=== PATIENT | male | born 1985 | race Caucasian/White ===

== ENCOUNTER 2018-05-06 19:46 | Inpatient (IN) | payer SELFPAY ==
[~2018-05-06] VITALS: Ht 172.7 cm; Wt 59.0 kg
[2018-05-07] MEDS ORDERED: SODIUM CHLORIDE 0.9% 1,000 ML IV ONE (01:05)
[2018-05-07] MEDS ORDERED: TETANUS, DIPHTHERIA, PERTUSSIS VAC/PF 0.5ML (>7YR OLD) IM ONE (01:15)
[2018-05-07] MEDS ORDERED: KETOROLAC 30MG/ML VIAL IV ONE (01:15)
[2018-05-07] MEDS ORDERED: METRONIDAZOLE 500 MG PREMIX 100 ML IV ONE (01:30)
[2018-05-07] MEDS ORDERED: SODIUM CHLORIDE 0.9% 1000ML BAG (SEPSIS BOLUS) IV ONE (01:30)
[2018-05-07] MEDS ORDERED: CLINDAMYCIN 600 MG in DEXTROSE 5% WATER 50 ML IV ONE (01:30)
[2018-05-07] MEDS ORDERED: VANCOMYCIN 1 G PREMIX 200 ML IV ONE (01:30)
[2018-05-07 01:38] LABS: BASOPHILS % 0.4 % (0.0-2.0); EOSINOPHILS % 0.7 % (0.0-5.0); HEMATOCRIT. 33.8 % (42.0-52.0); HEMOGLOBIN. 11.3 g/dL (14.0-18.0); LYMPHOCYTES % 9.2 % (20.0-50.0); MEAN CORPUSCULAR HEMOGLOBIN 29.9 pg (28.0-32.0); MEAN CORPUSCULAR VOLUME 89.1 fL (80.0-94.0); MEAN PLATELET VOLUME 6.9 fl (7.4-10.4); MONOCYTES % 9.1 % (2.0-8.0); NEUTROPHILS % 80.6 % (40.0-76.0); PLATELET 460 x1000/uL (130-400); RED BLOOD CELL COUNT 3.79 mill/uL (4.7-6.1); RED CELL DISTRIBUTION WIDTH 12.7 % (11.6-14.6)
[2018-05-07 01:44] LABS: CHLORIDE 97 mEq/L (98-107)
[2018-05-07 01:45] LABS: PROTHROMBIN TIME 10.3 sec (9.1-11.1)
[2018-05-07 01:48] LABS: ETHANOL BLOOD < 10 mg/dL
[2018-05-07] MEDS ORDERED: SODIUM CHLORIDE 0.9% 1,000 ML IV SCH (04:17)
[2018-05-07] MEDS ORDERED: IBUPROFEN 600MG TABLET PO PRN (04:30)
[2018-05-07 04:50] LABS: *AMPHETAMINES SCREEN URINE PRESUMTIVE POSITIVE (NEGATIVE); *BARBITURATES SCREEN URINE NEGATIVE (NEGATIVE)
[2018-05-07 04:51] LABS: *BENZODIAZEPINES SCREEN URINE NEGATIVE (NEGATIVE); *COCAINE SCREEN URINE NEGATIVE (NEGATIVE); CANNABINOID URINE SCREEN PRESUMTIVE POSITIVE (NEGATIVE); METHADONE URINE SCREEN NEGATIVE (NEGATIVE); OPIATES URINE SCREEN NEGATIVE (NEGATIVE); PHENCYCLIDINE URINE SCREEN NEGATIVE (NEGATIVE)
[2018-05-07 04:58] LABS: CLARITY URINE CLOUDY (CLEAR); COLOR URINE YELLOW (YELLOW); KETONES URINE NEGATIVE (NEGATIVE); LEUKOCYTE ESTERASE URINE TRACE (NEGATIVE); NITRITE URINE POSITIVE (NEGATIVE); OCCULT BLOOD URINE TRACE (NEGATIVE); PROTEIN URINE 1+ (NEGATIVE); SPECIFIC GRAVITY URINE 1.019 (1.005-1.030)
[2018-05-07 18:06] VITALS: BP 103/58
[2018-05-07 20:00] VITALS: BP 91/58
[2018-05-07 20:12] VITALS: BP 103/58
[2018-05-08] VITALS: BP 101/67
[2018-05-08 04:00] VITALS: BP 109/70
[2018-05-08] MEDS ORDERED: DIPHENHYDRAMINE 50MG/ML VIAL IV PRN (07:15)
[2018-05-08] MEDS ORDERED: VANCOMYCIN 1 G PREMIX 200 ML IV SCH (07:15)
[2018-05-08] MEDS ORDERED: ACETAMINOPHEN 325MG TABLET PO PRN (07:15)
[2018-05-08] MEDS ORDERED: LORAZEPAM 2MG/ML CPJ IV PRN (07:15)
[2018-05-08] MEDS ORDERED: ENOXAPARIN 40MG/0.4ML SYR SUBCUT SCH (07:15)
[2018-05-08] MEDS ORDERED: LORAZEPAM 0.5MG TABLET PO PRN (07:30)
[2018-05-08 07:52] LABS: BG BASE EXCESS 7.3 mmol/L (-2.0-2.0); BG CARBOXYHEMOGLOBIN 0.4 % (0.5-1.5); BG DEOXYHEMOGLOBIN 2.5 % (0.0-5.0); BG FRACTION INSPIRED OXYGEN 21; BG HCO3 ACT 31.7 mmol/L (22.0-26.0); BG METHEMOGLOBIN 0.1 % (0.0-1.5); BG OXYGEN SATURATION 97.5 % (92.0-98.5); BG PCO2 44.4 mmHg (35.0-45.0); BG PH 7.472 (7.350-7.450); BG PO2 96.1 mmHg (75.0-100.0); BG SAMPLE SITE LEFT RADIAL; BG TOTAL HEMOGLOBIN 11.3 g/dL (12.0-18.0); BG VENT MODE ROOM AIR
[2018-05-08 08:00] VITALS: BP 116/72
[2018-05-08] MEDS: SODIUM CHLORIDE 0.9% 1,000 ML IV SCH ×2 (08:40→17:34)
[2018-05-08] MEDS: ENOXAPARIN 40MG/0.4ML SYR SUBCUT SCH (08:40)
[2018-05-08] MEDS ORDERED: VANCOMYCIN 1250MG in DEXTROSE 5% WATER 250ML IV NR (09:00)
[2018-05-08 10:59] LABS: BASOPHILS % 0.5 % (0.0-2.0); HEMATOCRIT. 34.8 % (42.0-52.0); HEMOGLOBIN. 11.5 g/dL (14.0-18.0); MEAN CORPUSCULAR HEMOGLOBIN 29.8 pg (28.0-32.0); MEAN CORPUSCULAR VOLUME 90.4 fL (80.0-94.0); MEAN PLATELET VOLUME 7.5 fl (7.4-10.4); NEUTROPHILS % 74.5 % (40.0-76.0); PLATELET 488 x1000/uL (130-400); RED BLOOD CELL COUNT 3.84 mill/uL (4.7-6.1); RED CELL DISTRIBUTION WIDTH 12.7 % (11.6-14.6)
[2018-05-08 11:24] LABS: CHLORIDE 103 mEq/L (98-107)
[2018-05-08 12:00] VITALS: BP 97/61
[2018-05-08] MEDS: CEFTRIAXONE 1 G PREMIX 50 ML IV SCH (15:54)
[2018-05-08 16:00] VITALS: BP 98/62
[2018-05-08] MEDS: VANCOMYCIN 1 G PREMIX 200 ML IV SCH (17:34)
[2018-05-08 23:46] VITALS: BP 100/65
[2018-05-09] MEDS: VANCOMYCIN 1 G PREMIX 200 ML IV SCH ×2 (01:22→08:39)
[2018-05-09 03:48] VITALS: BP 122/87
[2018-05-09 07:40] LABS: BASOPHILS % 0.8 % (0.0-2.0); EOSINOPHILS % 0.7 % (0.0-5.0); HEMATOCRIT. 34.9 % (42.0-52.0); HEMOGLOBIN. 11.7 g/dL (14.0-18.0); LYMPHOCYTES % 10.1 % (20.0-50.0); MEAN CORPUSCULAR HEMOGLOBIN 30.3 pg (28.0-32.0); MEAN CORPUSCULAR VOLUME 90.4 fL (80.0-94.0); MEAN PLATELET VOLUME 7.5 fl (7.4-10.4); MONOCYTES % 8.6 % (2.0-8.0); NEUTROPHILS % 79.8 % (40.0-76.0); PLATELET 597 x1000/uL (130-400); RED BLOOD CELL COUNT 3.86 mill/uL (4.7-6.1); RED CELL DISTRIBUTION WIDTH 12.2 % (11.6-14.6)
[2018-05-09 07:50] LABS: CHLORIDE 101 mEq/L (98-107)
[2018-05-09 08:00] VITALS: BP 110/62
[2018-05-09] MEDS: ENOXAPARIN 40MG/0.4ML SYR SUBCUT SCH (08:40)
[2018-05-09 12:00] VITALS: BP 102/62
[2018-05-09] MEDS: SODIUM CHLORIDE 0.9% 1,000 ML IV SCH (12:43)
[2018-05-09 16:00] VITALS: BP 110/70
[2018-05-09] MEDS: CEFTRIAXONE 1 G PREMIX 50 ML IV SCH (16:03)
[2018-05-09] MEDS: VANCOMYCIN 750 MG PREMIX 150 ML IV SCH (17:45)
[2018-05-09] MEDS: HYDROCODONE/ACETAMINOPHEN 5/325MG TABLET PO PRN (18:48)
[2018-05-09 20:00] VITALS: BP 92/53
[2018-05-10] VITALS: BP 98/60
[2018-05-10] MEDS: VANCOMYCIN 750 MG PREMIX 150 ML IV SCH ×2 (00:59→09:22)
[2018-05-10 04:00] VITALS: BP 102/63
[2018-05-10] MEDS: HYDROCODONE/ACETAMINOPHEN 5/325MG TABLET PO PRN (04:04)
[2018-05-10 08:00] VITALS: BP 187/102
[2018-05-10] MEDS: ENOXAPARIN 40MG/0.4ML SYR SUBCUT SCH (08:40)
[2018-05-10 09:10] LABS: BASOPHILS % 0.7 % (0.0-2.0); HEMATOCRIT. 37.3 % (42.0-52.0); HEMOGLOBIN. 12.2 g/dL (14.0-18.0); LYMPHOCYTES % 16.5 % (20.0-50.0); MEAN CORPUSCULAR HEMOGLOBIN 29.6 pg (28.0-32.0); MEAN CORPUSCULAR VOLUME 90.4 fL (80.0-94.0); MEAN PLATELET VOLUME 7.2 fl (7.4-10.4); MONOCYTES % 7.8 % (2.0-8.0); PLATELET 647 x1000/uL (130-400); RED BLOOD CELL COUNT 4.12 mill/uL (4.7-6.1); RED CELL DISTRIBUTION WIDTH 12.4 % (11.6-14.6)
[2018-05-10] MEDS: SODIUM CHLORIDE 0.9% 1,000 ML IV SCH (09:22)
[2018-05-10 10:20] LABS: CHLORIDE 101 mEq/L (98-107)
[2018-05-10 12:00] VITALS: BP 108/57
[2018-05-10] MEDS: CEFTRIAXONE 1 G PREMIX 50 ML IV SCH (14:51)
[2018-05-10 16:00] VITALS: BP 107/59
[2018-05-10] MEDS: VANCOMYCIN 1 G PREMIX 200 ML IV SCH (18:08)
[2018-05-10 20:00] VITALS: BP 93/55
[2018-05-10] MEDS: NITROFURANTOIN 100MG M/M CAPSULE PO SCH (21:42)
[2018-05-11] VITALS: BP 92/59
[2018-05-11] MEDS: VANCOMYCIN 1 G PREMIX 200 ML IV SCH ×2 (00:44→08:17)
[2018-05-11 04:00] VITALS: BP 105/68
[2018-05-11] MEDS: SODIUM CHLORIDE 0.9% 1,000 ML IV SCH (04:46)
[2018-05-11] MEDS: NITROFURANTOIN 100MG M/M CAPSULE PO SCH (08:17)
[2018-05-11] MEDS: ENOXAPARIN 40MG/0.4ML SYR SUBCUT SCH (08:17)
[2018-05-11] MEDS ORDERED: SODIUM HYPOCHLORITE 0.125% 473ML SOLUTION TOP SCH (11:00)
[2018-05-11 12:31] VITALS: BP 122/73
== END 2018-05-11 15:43 | disposition home or self-care (01) | DRG 720 ==
LOC: ER 19:46 → 6EST 05-07 04:22 → EDBEDREQ 05-07 04:24 → EDBEDREQTM 05-07 04:24 → EDBEDREQSVC 05-07 10:26 → CANRESERV 05-07 10:27 → ENRESERV 05-07 10:27 → EDBEDREQSVC 05-07 10:37 → ENRESERV 05-07 16:33 → CANRESERV 05-07 16:38
PROVIDERS: ADMIT Internal Medicine Nephrology; ATTEND Internal Medicine Nephrology
DX: A41.9 Sepsis, unspecified organism (principal); E43 Unspecified severe protein-calorie malnutrition; E87.8 Other disorders of electrolyte and fluid balance, not elsewhere classified; G82.20 Paraplegia, unspecified; L03.116 Cellulitis of left lower limb; N39.0 Urinary tract infection, site not specified; L97.909 Non-pressure chronic ulcer of unspecified part of unspecified lower leg with unspecified severity; L02.419 Cutaneous abscess of limb, unspecified; E87.1 Hypo-osmolality and hyponatremia; D64.9 Anemia, unspecified; M60.9 Myositis, unspecified; F15.10 Other stimulant abuse, uncomplicated; F12.10 Cannabis abuse, uncomplicated; F17.200 Nicotine dependence, unspecified, uncomplicated; Z59.0 Homelessness; Z63.8 Other specified problems related to primary support group; Z99.3 Dependence on wheelchair; Z68.1 Body mass index [BMI] 19.9 or less, adult
CPT/HCPCS: 36415; 36600; 71045; 73590; 73700; 76881; 80048; 80202; 80305; 82375; 82805; 83605; 84145; 84484; 87070; 87077; 87186; 90715; 93005; 99285; G0482; J0696; J1650; J1885; J3370; J3490; J7030; J7060

== ENCOUNTER 2025-01-07 16:51 | Emergency (ER) | payer SELFPAY ==
[~2025-01-07] VITALS: Ht 170.2 cm; Wt 69.0 kg
[2025-01-07 16:55] VITALS: BP 111/68; PULSE 100; RESP 18; TEMP 36.8; O2SAT 100
== END 2025-01-07 19:40 | disposition left against medical advice (07) ==
LOC: ER 16:51
DX: T30.0 Burn of unspecified body region, unspecified degree (principal); Z53.21 Procedure and treatment not carried out due to patient leaving prior to being seen by health care provider; X58.XXXA Exposure to other specified factors, initial encounter; Y93.89 Activity, other specified; Y92.89 Other specified places as the place of occurrence of the external cause; Y99.8 Other external cause status